=== PATIENT | female | born 1960 | race Caucasian/White ===

== ENCOUNTER 2023-10-04 10:05 | Emergency (ER) | payer MEDICARE, SELFPAY ==
[2023-10-04 10:14] VITALS: BP 174/81; PULSE 109; RESP 20; TEMP 36.7; O2SAT 97; BMI 33.3
[2023-10-04 10:21] VITALS: O2SAT 97
[2023-10-04 10:47] LABS: Influenza Virus A Antigen Negative; Influenza Virus B Antigen Negative; Internal Control Within Normal Limits; SARS-CoV-2 Ag NEGATIVE (NEGATIVE)
--- NOTE | 2023-10-04 10:58 | ED.URI1 ---
HPI - URI/Sore Throat General Chief Complaint: Upper Respiratory Infection Stated Complaint: FEVER/CONGESTION Time Seen by Provider: 10/04/23 10:11 Source: patient Limitations: no limitations History of Present Illness HPI Narrative: 63-year-old female presents for a cough. She's been coughing up yellow to green colored phlegm for several days. No known fever or vomiting or hemoptysis. She's also about to run out of her home medications. She recently moved to this area from [place] and hasn't established herself with a new physician yet. Related Data Previous Rx's Medication Instructions Recorded azithromycin 250 mg tablet See Rx Instructions PO .COMPLEX #6 10/04/23 (Zithromax Z-Keaton) tabs buspirone 15 mg tablet 15 mg PO BID #60 tabs 10/04/23 metformin 1,000 mg tablet 1,000 mg PO BID #60 tabs 10/04/23 topiramate 50 mg tablet 50 mg PO BID #60 tabs 10/04/23 Allergies Allergy/AdvReac Type Severity Reaction Status Date / Time Penicillins Allergy Rash Verified 10/04/23 10:18 keflex Allergy Hives Uncoded 10/04/23 10:18 Review of Systems ROS Narrative A ten point review of systems is negative except as noted above. PFSH PFSH Social History Smoking status: Never smoker Exam Narrative Exam Narrative: Nurses note and vital signs reviewed and patient is not hypoxic. General: The patient appears well and in no apparent distress. Patient is resting comfortably on cart. Skin: Warm, dry, no pallor noted. There is no rash noted. Head: Normocephalic, atraumatic Eye: Normal conjunctiva, no drainage Ears, Nose, Mouth, and Throat: oral mucosa is moist. Nares patent. Cardiovascular: Regular Rate and Rhythm Respiratory: Patient is in no distress, no accessory muscle use, lungs are clear to auscultation, no wheezing, rales or rhonchi Back: non-tender, no CVA tenderness bilaterally to percussion. GI: often nontender Musculoskeletal: The patient has no evidence of calf tenderness, no pitting edema, symmetrical pulses noted bilaterally Neurological: A&O, normal speech Psychiatric: Cooperative Constitutional Vital Signs, click to edit/add: Last Vital Signs Temp 98.1 F 10/04/23 10:14 Pulse 109 H 10/04/23 10:14 Resp 20 10/04/23 10:14 BP 174/81 H 10/04/23 10:14 Pulse Ox 97 10/04/23 10:21 O2 Del Method Room Air 10/04/23 10:21 Course Vital Signs Vital signs: Vital Signs Temperature 98.1 F 10/04/23 10:14 Pulse Rate 109 H 10/04/23 10:14 Respiratory Rate 20 10/04/23 10:14 Blood Pressure 174/81 H 10/04/23 10:14 Pulse Oximetry 97 10/04/23 10:14 Oxygen Delivery Method Room Air 10/04/23 10:14 Temperature 98.1 F 10/04/23 10:14 Pulse Rate 109 H 10/04/23 10:14 Respiratory Rate 20 10/04/23 10:14 Blood Pressure 174/81 H 10/04/23 10:14 Pulse Oximetry 97 10/04/23 10:21 Oxygen Delivery Method Room Air 10/04/23 10:21 MDM - URI/Sore Throat MDM Narrative Medical decision making narrative: Covid and influenza swabs are negative. She is prescribed Zithromax and was given refills for her topiramate, metformin, and buspirone. She is encouraged to find a new family doctor and she will be doing that in [place]. Treatment diagnosis and follow-up were discussed with the patient. Differential Diagnosis Differential diagnosis: Likely upper respiratory infection, viral infection, bronchitis, influenza and other (Covid) Lab Data Attestation: I reviewed the patient's lab results. Labs: Lab Results 10/04/23 Range/Units 10:18 SARS-CoV-2 (PCR) Negative (NEGATIVE) Influenza Type A Ag Negative Influenza Type B Ag Negative Discharge Plan Discharge Chief Complaint: Upper Respiratory Infection Clinical Impression: Medication refill, Upper respiratory infection Patient Disposition: Home, Self-Care Time of Disposition Decision: 10:57 Condition: Good Mode of Transportation: Private Vehicle Prescriptions / Home Meds: New azithromycin [Zithromax Z-Keaton] 250 mg tablet See Rx Instructions .ROUTE .COMPLEX Qty: 6 0RF Rx Instructions: For 250 mg dose pack: take 500 mg today (day 1), then 250 mg for 4 days (days 2-5) topiramate 50 mg tablet 50 mg PO BID Qty: 60 0RF metformin 1,000 mg tablet 1,000 mg PO BID Qty: 60 0RF buspirone 15 mg tablet 15 mg PO BID Qty: 60 0RF Instructions: Upper Respiratory Infection (ED), Medicine Refill (ED) Stand Alone Forms: Portal Instructions Referrals: NICK FREY [Primary Care Provider] - 1 week
[2023-10-04 14:48] LABS: SARS-CoV-2 NAA NOT DETECTED (NOT DETECTE)
== END 2023-10-04 11:12 | disposition home or self-care (01) ==
PROVIDERS: Emergency Provider Emergency Medicine; PCP Nurse Practitioner Family
DX: J06.9 Acute upper respiratory infection, unspecified (principal); Z76.0 Encounter for issue of repeat prescription; Z79.899 Other long term (current) drug therapy; Z79.84 Long term (current) use of oral hypoglycemic drugs; Z20.822 Contact with and (suspected) exposure to COVID-19
CPT/HCPCS: 87635; 87804; 87811; 99283

== ENCOUNTER 2023-10-22 10:15 | Emergency (ER) | payer MEDICARE, SELFPAY ==
[2023-10-22 10:21] VITALS: BP 139/71; PULSE 119; RESP 18; TEMP 38.6; O2SAT 98; BMI 33.0
[2023-10-22 10:36] VITALS: O2SAT 98
--- NOTE | 2023-10-22 10:39 | ED.GENADUL1 ---
HPI - General Adult General Chief complaint: Upper Respiratory Infection Stated complaint: FEVER/ COUGH Time Seen by Provider: 10/22/23 10:38 Source: patient Mode of arrival: walk-in History of Present Illness HPI narrative: patient here at onset of cough and congestion. She just moved here from [place]. Does not have a primary care doctor. She lives with her son he was just diagnosed as bronchitis today with his cough and fever. She has generalized aches and pains. Her vaccines are current for pneumococcal, Covid and influenza. She did not get respiratory syncytial virus. She does not use tobacco products. She's not been admittedfor pneumonia in the past. She did have pneumonia in the 90s. She is not currently on any antibiotics. She's not seen a blood-tinged sputum. She does not have nausea vomiting vomiting diarrhea or any gastrointestinal symptoms. Related Data Home Medications Medication Instructions Recorded Confirmed dulaglutide 0.75 mg/0.5 mL 0.75 mg subcut QWEEK 10/22/23 10/22/23 subcutaneous pen injector (Trulicity) escitalopram oxalate 20 mg tablet 20 mg PO DAILY 10/22/23 10/22/23 Previous Rx's Medication Instructions Recorded buspirone 15 mg tablet 15 mg PO BID #60 tabs 10/04/23 metformin 1,000 mg tablet 1,000 mg PO BID #60 tabs 10/04/23 topiramate 50 mg tablet 50 mg PO BID #60 tabs 10/04/23 Allergies Allergy/AdvReac Type Severity Reaction Status Date / Time Penicillins Allergy Rash Verified 10/04/23 10:18 keflex Allergy Hives Uncoded 10/04/23 10:18 [facility] Medical History (Updated 10/22/23 @ 12:13 by Robi Toure MD) Diabetes ?E11.9 - Type 2 diabetes mellitus without complications (ICD-10) Social History Smoking status: Never smoker Exam Narrative Exam Narrative: awake alert pleasant quite a talker. No acute distress.respiratory rate is normal. She does have low-grade fever. HEENT the HEENT examination shows no pallor or scleral icterus. Craniofacial structures appear normal. She does have a wet sounding cough with slight bronchospasm. Restaurant rate is normal. She does not have any stridor or retractions. Extremities do not show any evidence of swelling edema or phlebitis. Neurological examination is baseline with normal cognition and mentation. Constitutional Vital Signs, click to edit/add: Last Vital Signs Temp 101.4 F H 10/22/23 10:21 Pulse 119 H 10/22/23 10:21 Resp 18 10/22/23 10:21 BP 139/71 10/22/23 10:21 Pulse Ox 98 10/22/23 10:36 O2 Del Method Room Air 10/22/23 10:36 Course Vital Signs Vital signs: Vital Signs Temperature 101.4 F H 10/22/23 10:21 Pulse Rate 119 H 10/22/23 10:21 Respiratory Rate 18 10/22/23 10:21 Blood Pressure 139/71 10/22/23 10:21 Pulse Oximetry 98 10/22/23 10:21 Oxygen Delivery Method Room Air 10/22/23 10:21 Temperature 101.4 F H 10/22/23 10:21 Pulse Rate 119 H 10/22/23 10:21 Respiratory Rate 18 10/22/23 10:21 Blood Pressure 139/71 10/22/23 10:21 Pulse Oximetry 98 10/22/23 10:36 Oxygen Delivery Method Room Air 10/22/23 10:36 Medical Decision Making MDM Narrative Medical decision making narrative: patient's Covid testing is negative. Influenza is positive. She is past the window of using antivirals. This was explained to her. She did feel better with the nebulizer so I'll give her a prescription for an albuterol and respiratory we'll teach her to use it. Chest x-ray is negative for any pneumonia. Discharge Plan Discharge Chief Complaint: Upper Respiratory Infection Clinical Impression: Influenza Patient Disposition: Home, Self-Care Time of Disposition Decision: 12:12 Prescriptions / Home Meds: No Action Trulicity 0.75 mg/0.5 mL pen injector 0.75 mg SUBCUT QWEEK escitalopram oxalate 20 mg tablet 20 mg PO DAILY topiramate 50 mg tablet 50 mg PO BID Qty: 60 0RF metformin 1,000 mg tablet 1,000 mg PO BID Qty: 60 0RF buspirone 15 mg tablet 15 mg PO BID Qty: 60 0RF Additional Instructions: use nebulizer as discussed, return for worsening symptoms Stand Alone Forms: Portal Instructions Referrals: NICK FREY [Physician] - 1 week
--- NOTE | 2023-10-22 10:46 | XR_ITS ---
The [address] [address] Patient Name: DANIEL COHEN MRN: [id number] date: 1960 Sex: F Assigned Patient Location: ER Current Patient Location: ER Accession/Order Number: [id number] Exam Date: 10/22/2023 11:45 Report Date: 10/22/2023 12:10 At the request of: ORQUIDEA LEMUS Procedure: XR chest 1V EXAMINATION: XR chest 1V HISTORY: cough//fever COMPARISON: XR chest 11/15/2020 FINDINGS: LUNGS: No significant pulmonary parenchymal abnormalities. VASCULATURE: No increased pulmonary vasculature. PLEURA: No pneumothorax, effusion, or pleural thickening. CARDIAC: No cardiomegaly or cardiac silhouette abnormality. MEDIASTINUM: No visible mass or adenopathy. BONES: No fracture or visible bone lesion. OTHER: Negative. XR/XR chest 1V IMPRESSION: 1. No acute cardiopulmonary process. Electronically authenticated by: DMITRY BANDA Date: 10/22/2023 12:10
[2023-10-22] MEDS: IPRATROPIUM/ALBUTEROL SULFATE 3 ML AMPUL.NEB IH (11:19)
[2023-10-22 12:01] LABS: Influenza Virus A Antigen Positive; Influenza Virus B Antigen Negative; Internal Control Within Normal Limits; SARS-CoV-2 Ag NEGATIVE (NEGATIVE)
[2023-10-23 14:26] LABS: SARS-CoV-2 NAA NOT DETECTED (NOT DETECTE)
== END 2023-10-22 12:28 | disposition home or self-care (01) ==
PROVIDERS: Emergency Provider Emergency Medicine Emergency Medical Services
DX: J11.1 Influenza due to unidentified influenza virus with other respiratory manifestations (principal); Z87.01 Personal history of pneumonia (recurrent); E11.9 Type 2 diabetes mellitus without complications; R50.9 Fever, unspecified; Z79.85 Long-term (current) use of injectable non-insulin antidiabetic drugs; Z79.84 Long term (current) use of oral hypoglycemic drugs
CPT/HCPCS: 71045; 87635; 87798; 87804; 87811; 94640; 99284